=== PATIENT | female | born 1950 | race Caucasian/White ===

== ENCOUNTER 2022-02-25 13:36 | Emergency (ER) | payer MEDICARE ==
[~2022-02-25] VITALS: Ht 170.2 cm; Wt 87.7 kg
[2022-02-25 15:19] LABS: Basophils # (auto) 0 10 ^3/uL (0-0.2); Basophils % (auto) 0.5 % (0.0-2.0); Eosinophils # (auto) 0.1 10 ^3/uL (0-0.8); Eosinophils % (auto) 1.9 % (0.0-7.0); Hematocrit 47.8 % (36.0-46.0); Hemoglobin 15.5 g/dL (12.2-16.2); Lymphocytes # (auto) 2.1 10 ^3/uL (0.4-5.4); Lymphocytes % (auto) 31.7 % (10.0-50.0); Mean Corpuscular Hemoglobin 27.5 pg (28.0-32.0); Mean Corpuscular Hgb Conc. 32.4 g/dL (32.0-36.0); Monocytes # (auto) 0.5 10 ^3/uL (0-1.3); Monocytes % (auto) 7.3 % (0.0-12.0); Neutrophils # (auto) 3.9 10 ^3/uL (1.6-8.6); Neutrophils % (auto) 58.6 % (37.0-80.0); Nucleated Red Blood Cells % 0.1 %; Red Blood Cells 5.62 10^6/uL (4.0-5.20); Red Cell Distribution Width 14.6 % (11.8-14.3); White Blood Cell 6.6 10^3/uL (4.4-10.8)
[2022-02-25 15:50] LABS: INR 3.95 (0.9-1.15); Partial Thromboplastin Time 45.6 sec (24.6-33.4)
[2022-02-25 16:41] LABS: Anion Gap 8 (5-15); Carbon Dioxide 25 mmol/L (21-32); Chloride 107 mmol/L (98-107); Potassium 3.9 mmol/L (3.5-5.1); Sodium 140 mmol/L (136-145)
[2022-02-25 16:42] LABS: Alanine Aminotransferase 29 U/L (13-56); Albumin 3.9 g/dL (3.4-5.0); Alkaline Phosphatase 63 U/L (45-117); Aspartate Aminotransferase 27 U/L (15-37); BUN/Creatinine Ratio 15.6; Bilirubin, Total 0.7 mg/dL (0.2-1.0); Blood Urea Nitrogen 12 mg/dL (7-18); Calcium 9.1 mg/dL (8.5-10.1); GFR African American 95 mL/min; GFR Non-African American 78 mL/min; Glucose 98 mg/dL (74-106); Magnesium 2.1 mg/dL (1.6-2.6); Total Protein 6.9 g/dL (6.4-8.2)
[2022-02-25] MEDS ORDERED: WARF2TAB49 PO (18:34)
[2022-02-25 19:19] VITALS: BP 140/74
== END 2022-02-25 20:49 | disposition home or self-care (01) ==
LOC: ER 13:38 → EDBD 13:38 → ER 20:49
DX: R79.1 Abnormal coagulation profile (principal); R42 Dizziness and giddiness; Z76.0 Encounter for issue of repeat prescription; Z88.6 Allergy status to analgesic agent; Z88.1 Allergy status to other antibiotic agents
CPT/HCPCS: 36415; 71045; 80053; 83735; 83880; 84443; 84484; 85025; 85610; 85730; 93005